=== PATIENT | female | born 1960 | race Hispanic/Latino ===

== ENCOUNTER 2018-01-08 06:42 | Emergency (ER) | payer SELFPAY ==
--- NOTE | 2018-01-08 07:58 | XRay Report ---
FINAL REPORT EXAM: XR CHEST ROUTINE 2V HISTORY: Shortness of breath TECHNIQUE: PA and lateral views of the chest were submitted. FINDINGS: The lungs are hyper inflated. There are surgical clips of the level of the right hilum. There is slight soft tissue fullness in the right hilum. Adenopathy cannot be excluded. There are no infiltrates or congestion in the lungs otherwise. Pleural fluid is not seen. The skeletal structures reveal hardware in the lower cervical spine from previous multilevel fusion surgery. There is disc degeneration in the dorsal spine. IMPRESSION: COPD. Postsurgical changes in the right hilum. Slight soft tissue fullness noted in the right hilum. Adenopathy cannot be excluded. No localized infiltrates or evidence of congestion.
[2018-01-08 08:08] LABS: INR 0.8 (0.87-1.13)
[2018-01-08 08:09] LABS: BUN/Creatinine Ratio 22; Blood Urea Nitrogen 13 mg/dL (7-17); Calcium 9.1 mg/dL (8.4-10.2); Hemolysis Index 15
[2018-01-08 08:17] LABS: Basophils # (Auto) 0.1 K/mm3 (0.0-0.1); Basophils % (Auto) 1.4 % (0.0-1.8); Eosinophils # (Auto) 0.1 K/mm3 (0.0-0.4); Eosinophils % (Auto) 1.7 % (0.0-4.3); Hematocrit 34.4 % (30.3-42.9); Hemoglobin 11.7 gm/dl (10.1-14.3); Lymphocytes # (Auto) 2.7 K/mm3 (1.2-5.4); Lymphocytes % (Auto) 32.3 % (13.4-35.0); Mean Corpuscular HGB Conc 34 % (30-34); Mean Corpuscular Hemoglobin 32 pg (28-32); Mean Corpuscular Volume 95 fl (79-97); Monocytes # (Auto) 0.6 K/mm3 (0.0-0.8); Monocytes % (Auto) 6.9 % (0.0-7.3); Red Blood Count 3.63 M/mm3 (3.65-5.03); Red Cell Distribution Width 14.2 % (13.2-15.2)
[2018-01-08 09:09] VITALS: BP 108/67
[2018-01-08 09:14] LABS: Platelet Count 225 K/mm3 (140-440)
--- NOTE | 2018-01-08 10:22 | Emergency Department Report ---
ED Shortness of Breath HPI - General Chief Complaint: Dyspnea/Respdistress Stated Complaint: FRANCESCO Time Seen by Provider: 01/08/18 10:18 Source: patient Mode of arrival: Ambulatory Limitations: No Limitations - History of Present Illness MD Complaint: shortness of breath - Related Data Allergies Allergy/AdvReac Type Severity Reaction Status Date / Time bee pollen Allergy Anaphylaxis Verified 01/08/18 07:19 erythromycin base Allergy Hives Verified 01/08/18 07:19 haloperidol [From Haldol] Allergy Anaphylaxis Verified 01/08/18 07:19 morphine Allergy Rash Verified 01/08/18 07:19 Penicillins Allergy Anaphylaxis Verified 01/08/18 07:19 sulfamethoxazole Allergy Hives Verified 01/08/18 07:19 [From Septra] trimethoprim [From Septra] Allergy Hives Verified 01/08/18 07:19 iv contrast Allergy Anaphylaxis Uncoded 01/08/18 07:19 ED Review of Systems ROS: Stated complaint: FRANCESCO Other details as noted in HPI ED Past Medical Hx - Past Medical History Previous Medical History?: Yes Hx Pulmonary Embolism: Yes Hx of Cancer: Yes (lung cancer) Hx Psychiatric Treatment: Yes (anxiety, bipolar) Hx COPD: Yes Additional medical history: PTSD - Surgical History Past Surgical History?: Yes Hx Cholecystectomy: Yes Hx Appendectomy: Yes Additional Surgical History: right upper lobe removed. bilateral ACL reconstruction. lamenectomy. neck fusion. hysterectomy. . bowel resection - Social History Smoking Status: Current Every Day Smoker Substance Use Type: None ED Physical Exam - General Limitations: No Limitations, Other (patient eloped before M.D. assessment.) ED Course Vital Signs 01/08/18 01/08/18 01/08/18 06:54 07:20 08:18 Temperature 97.9 F 97.9 F Pulse Rate 98 H 98 H 87 Respiratory 16 16 8 L Rate Blood Pressure 111/61 111/61 Blood Pressure [Left] O2 Sat by Pulse 99 99 99 Oximetry 01/08/18 01/08/18 01/08/18 08:30 08:36 08:46 Temperature 97.7 F Pulse Rate 89 87 91 H Respiratory 18 13 14 Rate Blood Pressure 107/71 108/67 Blood Pressure 100/66 [Left] O2 Sat by Pulse 98 99 98 Oximetry - Reevaluation(s) Reevaluation #1: 01/08/18 10:21 Patient eloped before M.D. assessment. ED Medical Decision Making - Lab Data Result diagrams: 01/08/18 07:32 01/08/18 07:32 - EKG Data -: EKG Interpreted by Me EKG shows normal: sinus rhythm - EKG Data Interpretation: no acute changes - Radiology Data Radiology results: report reviewed Referring Physician: VITO RUFFIN Patient Name: JOVANI SHERWOOD Date of : 1960 Sex: Female Report Date: 2018-01-08 Report Status: Finalized Findings [facility] [address] [place] [address] XRay Report Signed Patient: JOVANI SHERWOOD MR#: [id number] : 1960 Acct:[id number] Age/Sex: 57 / F ADM Date: 01/08/18 Loc: ED Attending Dr: Ordering Physician: VITO RUFFIN MD Date of Service: 01/08/18 Procedure(s): XR chest routine 2V Accession Number(s): [id number] cc: VITO RUFFIN MD Fluoro Time In Minutes: FINAL REPORT EXAM: XR CHEST ROUTINE 2V HISTORY: Shortness of breath TECHNIQUE: PA and lateral views of the chest were submitted. FINDINGS: The lungs are hyper inflated. There are surgical clips of the level of the right hilum. There is slight soft tissue fullness in the right hilum. Adenopathy cannot be excluded. There are no infiltrates or congestion in the lungs otherwise. Pleural fluid is not seen. The skeletal structures reveal hardware in the lower cervical spine from previous multilevel fusion surgery. There is disc degeneration in the dorsal spine. IMPRESSION: COPD. Postsurgical changes in the right hilum. Slight soft tissue fullness noted in the right hilum. Adenopathy cannot be excluded. No localized infiltrates or evidence of congestion. Transcribed By: RB Dictated By: KHUSHBOO ADAMS MD Electronically Authenticated By: KHUSHBOO ADAMS MD Signed Date/Time: 01/08/18750 DD/ 0 TD/TT: 01/08/18750 - Medical Decision Making Patient eloped before M.D. assessment. Critical care attestation.: If time is entered above; I have spent that time in minutes in the direct care of this critically ill patient, excluding procedure time. ED Disposition Clinical Impression: Shortness of breath Disposition: ELOPED Is pt being admited?: No Condition: Stable Referrals: PRIMARY CARE, [Primary Care Provider] - 3-5 Days
== END 2018-01-08 10:18 | disposition left against medical advice (07) ==
LOC: ED 06:42
DX: R06.02 Shortness of breath (principal); F17.200 Nicotine dependence, unspecified, uncomplicated; J44.9 Chronic obstructive pulmonary disease, unspecified; Z88.1 Allergy status to other antibiotic agents; Z88.5 Allergy status to narcotic agent; Z88.8 Allergy status to other drugs, medicaments and biological substances
CPT/HCPCS: 36415; 71046; 80048; 84484; 85025; 85610; 85730; 87040; 93005; 93010

== ENCOUNTER 2018-01-08 11:27 | Emergency (ER) | payer SELFPAY ==
[2018-01-08] MEDS ORDERED: GEODON IM ONE ×2 (11:28→11:51)
[2018-01-08] MEDS ORDERED: WATER FOR INJ (PF) ONE (11:28)
[2018-01-08] MEDS ORDERED: ACTIDOSE-AQUA PO ONE (11:33)
[2018-01-08 12:18] LABS: Bacteria,Urine 1+ /HPF (Negative); Bilirubin,Urine NEG (Negative); Blood,Urine NEG (Negative); Color,Urine Straw (Yellow); Mucus,Urine FEW /HPF; Protein,Urine <15 mg/dL mg/dL (Negative); Urobilinogen,Urine < 2.0 mg/dL (<2.0)
[2018-01-08 12:33] LABS: Amphetamine Screen,Urine PRESUMPTIVE NEGATIVE; Benzodiazepines Screen,Urine PRESUMPTIVE NEGATIVE; Cannabinoid Screen,Urine PRESUMPTIVE NEGATIVE; Cocaine Screen,Urine PRESUMPTIVE NEGATIVE; Methadone Screen,Urine PRESUMPTIVE NEGATIVE; Opiate Screen,Urine PRESUMPTIVE NEGATIVE
[2018-01-08 12:33] LABS: Hemoglobin 11.6 gm/dl (10.1-14.3); Mean Corpuscular HGB Conc 35 % (30-34); Mean Corpuscular Hemoglobin 33 pg (28-32); Mean Corpuscular Volume 94 fl (79-97); Platelet Count 235 K/mm3 (140-440); Red Blood Count 3.52 M/mm3 (3.65-5.03); Red Cell Distribution Width 14.3 % (13.2-15.2)
--- NOTE | 2018-01-08 12:47 | Emergency Department Report ---
ED Psych HPI - General Chief Complaint: Psych Stated Complaint: SUICIDAL IDEATION Source: patient Mode of arrival: Ambulatory - History of Present Illness Initial Comments: Patient is 57 years old female with history of COPD, bipolar. Patient was seen earlier today in the ER for cough and SOB but she did not wait for M.D. assessment. She came back stating that she took 30 tablets of ibuprofen 800 mg. Patient stated that she wanted to kill herself because she is very depressed. She denied any auditory or visual hallucination. No homicidal ideation. Poison control was contacted and advised to observe for 4 hours. MD Complaint: suicidal ideation Associated Psychiatric Symptoms: depression - Related Data Allergies Allergy/AdvReac Type Severity Reaction Status Date / Time bee pollen Allergy Anaphylaxis Verified 01/08/18 11:44 erythromycin base Allergy Hives Verified 01/08/18 11:44 haloperidol [From Haldol] Allergy Anaphylaxis Verified 01/08/18 11:44 morphine Allergy Rash Verified 01/08/18 11:44 Penicillins Allergy Anaphylaxis Verified 01/08/18 11:44 sulfamethoxazole Allergy Hives Verified 01/08/18 11:44 [From Septra] trimethoprim [From Septra] Allergy Hives Verified 01/08/18 11:44 iv contrast Allergy Anaphylaxis Uncoded 01/08/18 07:19 ED Review of Systems ROS: Stated complaint: SUICIDAL IDEATION Other details as noted in HPI Comment: All other systems reviewed and negative Constitutional: denies: chills, fever Respiratory: cough. denies: orthopnea, shortness of breath, SOB with exertion, SOB at rest, wheezing Cardiovascular: denies: chest pain, palpitations, dyspnea on exertion Gastrointestinal: denies: abdominal pain, nausea, vomiting, diarrhea, constipation, hematemesis, melena, hematochezia Neurological: denies: headache, weakness, numbness, paresthesias, confusion, abnormal gait ED Past Medical Hx - Past Medical History Hx Pulmonary Embolism: Yes Hx Psychiatric Treatment: Yes (anxiety, bipolar) Hx COPD: Yes Additional medical history: PTSD - Surgical History Hx Cholecystectomy: Yes Hx Appendectomy: Yes Additional Surgical History: right upper lobe removed. bilateral ACL reconstruction. lamenectomy. neck fusion. hysterectomy. . bowel resection - Social History Smoking Status: Current Every Day Smoker Substance Use Type: None ED Physical Exam - General Limitations: No Limitations General appearance: alert, in no apparent distress, anxious - Head Head exam: Present: atraumatic, normocephalic, normal inspection - Eye Eye exam: Present: normal appearance - ENT ENT exam: Present: normal exam, normal orophraynx, mucous membranes moist - Neck Neck exam: Present: normal inspection, full ROM. Absent: tenderness, meningismus - Respiratory Respiratory exam: Present: normal lung sounds bilaterally. Absent: respiratory distress, wheezes, rales, rhonchi, stridor, accessory muscle use, decreased breath sounds, prolonged expiratory - Cardiovascular Cardiovascular Exam: Present: regular rate, normal rhythm, normal heart sounds - GI/Abdominal GI/Abdominal exam: Present: soft, normal bowel sounds. Absent: distended, tenderness, guarding, rebound, rigid, organomegaly, mass, bruit, pulsatile mass , hernia - Extremities Exam Extremities exam: Present: normal inspection, full ROM, normal capillary refill - Back Exam Back exam: Present: normal inspection, full ROM. Absent: CVA tenderness (L) - Neurological Exam Neurological exam: Present: alert, oriented X3, CN II-XII intact, normal gait, reflexes normal - Skin Skin exam: Present: warm, intact, normal color ED Course Vital Signs 01/08/18 01/08/18 11:44 17:43 Temperature 97.6 F 97.9 F Pulse Rate 98 H 82 Respiratory 20 20 Rate Blood Pressure 138/84 Blood Pressure 112/64 [Left] O2 Sat by Pulse 94 95 Oximetry - Reevaluation(s) Reevaluation #1: 01/08/18 18:52 Patient has been observed in the ER for more than 8 hours now, no nausea or vomiting. Patient is medically clear to be admitted to a psychiatric facility. ED Medical Decision Making - Lab Data Result diagrams: 01/08/18 12:21 01/08/18 12:21 - Radiology Data Radiology results: report reviewed Chest x-rays unremarkable. Critical care attestation.: If time is entered above; I have spent that time in minutes in the direct care of this critically ill patient, excluding procedure time. ED Disposition Clinical Impression: Suicide attempt, Drug overdose, intentional, Acute bronchitis Disposition: [id number]/TX-65 PSY HOSP/PSY UNIT Is pt being admited?: No Condition: Stable Instructions: Acute Bronchitis (ED) Referrals: PRIMARY CARE,MD [Primary Care Provider] - 3-5 Days
[2018-01-08 12:51] LABS: Alanine Aminotransferase 87 units/L (7-56); Albumin 4.2 g/dL (3.9-5); BUN/Creatinine Ratio 18; Blood Urea Nitrogen 11 mg/dL (7-17); Calcium 9.1 mg/dL (8.4-10.2); Hemolysis Index 23
[2018-01-08 12:55] LABS: Bilirubin,Direct < 0.2 mg/dL (0-0.2)
[2018-01-09] MEDS ORDERED: ATIVAN PO SCH (10:00)
[2018-01-09] MEDS: ATIVAN PO PRN ×2 (10:09→20:05)
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
[2018-01-09 14:20] LABS: Alanine Aminotransferase 61 units/L (7-56)
[2018-01-09] MEDS: PAXIL PO SCH (14:43)
[2018-01-09] MEDS ORDERED: ZOFRAN ODT PO ONE (14:49)
[2018-01-09] MEDS: LEVAQUIN PO SCH (15:06)
[2018-01-09] MEDS ORDERED: K-DUR PO ONE (17:13)
[2018-01-09] MEDS ORDERED: TYLENOL ONE (17:15)
[2018-01-09] MEDS: THORAZINE PO SCH (22:20)
[2018-01-10] MEDS: ATIVAN PO PRN ×2 (07:15→21:29)
[2018-01-10] MEDS: LEVAQUIN PO SCH (10:30)
[2018-01-10] MEDS: THORAZINE PO SCH ×2 (12:15→22:00)
[2018-01-10] MEDS: PAXIL PO SCH (12:15)
--- NOTE | 2018-01-10 13:23 | Progress Note ---
Subjective - Reason for Consult Consult date: 01/10/18 Reason for consult: Psychiatry Follow-up - Chief Complaint Chief complaint: "I am okay" 57 y.o. white female presenting to the ER for depression and possible suicide attempt ny taking multiple ibuprofen. Today the patient is calm, but dysphoric during the assessment. She did state that it was a unsafe act taking multiple ibuprofen pills. She still will not confirm or deny a previous suicide attempt when asked. She denies SI/Hi's and AVH's. She denies any side effects of her medications. Mental Status Exam - Vital signs Last Vital Signs Temp 97.5 F L 01/09/18 22:00 Pulse 92 H 01/09/18 22:00 Resp 18 01/09/18 22:00 BP 105/75 01/09/18 22:00 Pulse Ox 98 01/09/18 22:00 - Exam Narrative exam: MSE: Appearance: calm, cooperative Behavior: regular eye contact Speech: regular rate and tone Mood: dysphoric Affect: congruent to mood Thought Process: circumstantial Thought Content: denies SI/HI's and AVH's Motor Activity: ambulatory Cognition: A/O x 3 Insight: variable Judgment: variable Assessment and Plan Impression: Unspecified Mood DO. PTSD. Unspecified Anxiety DO. Today the patient is calm, but dysphoric during the assessment. The patient took several Ibuprofen pills. QTc 462 01/09/2018. DDx: Bipolar DO, MDD Recommendation/Plan: Continue 1013 and gather collateral information to help determine proper dispo. Continue Paxil 20 mg PO, Thorazine 25 mg PO BID, and Ativan 0.5 mg PO Q6hrs PRN. Discussed possible suicidality/medication induced bernardo with patient reference Paxil. Discussed possible EPS symptoms with patient reference Thorazine.
[2018-01-10] MEDS ORDERED: BENADRYL PO ONE (15:24)
[2018-01-10] MEDS ORDERED: VALIUM PO ONE (16:00)
[2018-01-10] MEDS ORDERED: TYLENOL PO ONE (23:41)
[2018-01-10] MEDS ORDERED: TYLENOL ONE (23:46)
[2018-01-11] MEDS: ATIVAN PO PRN ×4 (06:21→21:14)
[2018-01-11 09:18] VITALS: BP 117/76
[2018-01-11] MEDS: THORAZINE PO SCH (09:30)
[2018-01-11] MEDS: LEVAQUIN PO SCH (09:30)
[2018-01-11] MEDS: PAXIL PO SCH (09:30)
--- NOTE | 2018-01-11 10:28 | Progress Note ---
Subjective - Reason for Consult Consult date: 01/11/18 Reason for consult: Psychiatry Follow-up - Chief Complaint Chief complaint: "When can I move" 57 y.o. white female presenting to the ER for depression and possible suicide attempt ny taking multiple ibuprofen. Today the patient is calm and cooperative during the assessment. She stated that she plan to follow up with her psychiatrist once discharged. She is adamant that she didn't intentionally try to harm herself when she took multiple Ibuprofen pills. She denies SI/Hi's and AVH's. She denies any side effects of her medications. Mental Status Exam - Vital signs Last Vital Signs Temp 99 F 01/11/18 09:17 Pulse 93 H 01/11/18 09:17 Resp 20 01/11/18 09:17 BP 117/76 01/11/18 09:17 Pulse Ox 98 01/11/18 09:17 - Exam Narrative exam: MSE: Appearance: calm, cooperative Behavior: regular eye contact Speech: regular rate and tone Mood: "better" Affect: congruent to mood Thought Process: circumstantial Thought Content: denies SI/HI's and AVH's Motor Activity: ambulatory Cognition: A/O x 3 Insight: fair Judgment: fair Assessment and Plan Impression: Unspecified Mood DO. PTSD. Unspecified Anxiety DO. Today the patient is calm and cooperative during the assessment. The patient took several Ibuprofen pills. QTc 462 01/09/2018. DDx: Bipolar DO, MDD Recommendation/Plan: Reevaluate 1013 in 24 hours. A suicide risk assessment should be completed on the patient if her 1013 is rescinded. Continue Paxil 20 mg PO, Thorazine 25 mg PO BID, and Ativan 0.5 mg PO Q6hrs PRN. Discussed possible suicidality/medication induced bernardo with patient reference Paxil. Discussed possible EPS symptoms with patient reference Thorazine.
[2018-01-11] MEDS ORDERED: VALIUM PO NR (11:23)
[2018-01-11] MEDS ORDERED: TYLENOL #3 ONE (11:27)
[2018-01-11] MEDS ORDERED: VALIUM ONE (11:29)
[2018-01-11] MEDS ORDERED: WATER FOR INJ (PF) ONE (16:13)
[2018-01-11] MEDS ORDERED: GEODON IM ONE ×2 (16:13→16:16)
--- NOTE | 2018-01-11 17:13 | XRay Report ---
FINAL REPORT EXAM: XR SPINE LUMBOSACRAL 2-3V HISTORY: sacral pain TECHNIQUE: Frontal and lateral views lumbar spine and coned-down lateral views lumbosacral junction Comparison: None FINDINGS: Bony alignment is normal. The vertebral heights are maintained. There appears to be loss of height of the L4-L5 disc. There is multiple level degenerative facet change in the lower lumbar spine. The paraspinous soft tissues are notable for atherosclerotic vascular calcification. Surgical clips in the right upper quadrant most likely represent previous cholecystectomy. IMPRESSION: 1. Spondylitic change lumbar spine. If further imaging is required, MRI may be helpful. 2. Atherosclerotic vascular calcification. 3. Previous cholecystectomy.
== END 2018-01-11 22:07 ==
LOC: ED 11:27 → EEVIPCON 11:27 → ED 01-11 22:07
DX: T39.312A Poisoning by propionic acid derivatives, intentional self-harm, initial encounter (principal); J20.9 Acute bronchitis, unspecified; F41.9 Anxiety disorder, unspecified; F31.9 Bipolar disorder, unspecified; J44.9 Chronic obstructive pulmonary disease, unspecified; F17.200 Nicotine dependence, unspecified, uncomplicated; F43.10 Post-traumatic stress disorder, unspecified; Z90.49 Acquired absence of other specified parts of digestive tract; Z90.89 Acquired absence of other organs; Z88.1 Allergy status to other antibiotic agents; Z88.5 Allergy status to narcotic agent; Z91.030 Bee allergy status; Z88.0 Allergy status to penicillin; Z88.2 Allergy status to sulfonamides; Z91.041 Radiographic dye allergy status; Z79.899 Other long term (current) drug therapy; Y92.89 Other specified places as the place of occurrence of the external cause
CPT/HCPCS: 36415; 72100; 80048; 80074; 80307; 81001; 82550; 83735; 84075; 84132; 84450; 84460; 85027; 96372; 99285; G0480; J3486; 80320; Q0161; Q0162

== ENCOUNTER 2018-10-19 06:59 | Emergency (ER) | payer OTHER ==
[2018-10-19] MEDS ORDERED: ASPIRIN PO ONE (07:06)
[2018-10-19 07:45] LABS: Hematocrit 36.2 % (30.3-42.9); Hemoglobin 12.4 gm/dl (10.1-14.3); Mean Corpuscular HGB Conc 34 % (30-34); Mean Corpuscular Volume 95 fl (79-97); Platelet Count 181 K/mm3 (140-440); Red Blood Count 3.83 M/mm3 (3.65-5.03); Red Cell Distribution Width 14.1 % (13.2-15.2)
--- NOTE | 2018-10-19 07:58 | XRay Report ---
ROUTINE CHEST, TWO VIEWS: HISTORY: chest pain. Compared to 01/08/18 exam. The lungs are hyperinflated consistent with underlying emphysematous changes. Surgical changes and scarring are suspected in the right perihilar region which is unchanged. The lungs are clear otherwise. No pleural effusion or pneumothorax. Normal heart size and pulmonary vessels. The bony structures are grossly intact. Lower cervical fusion changes are again noted. IMPRESSION: Emphysematous changes. Postsurgical changes at the right hilum which probably represents partial right pneumonectomy. No acute change since 01/08/18.
[2018-10-19 08:07] LABS: BUN/Creatinine Ratio 18; Blood Urea Nitrogen 11 mg/dL (7-17); Calcium 9.4 mg/dL (8.4-10.2); Hemolysis Index 13
[2018-10-19 08:25] LABS: INR 0.8 (0.87-1.13); Partial Thromboplastin Time 20.9 Sec. (24.2-36.6)
[2018-10-19 08:33] LABS: Band Neutrophils # (Manual) 0.1 K/mm3; Basophils % (Manual) 0 % (0.0-1.8); Eosinophils % (Manual) 0 % (0.0-4.3); Monocytes % (Manual) 0 % (0.0-7.3); Platelet Clumps 1+; Platelet Estimate Consistent w Auto; Stomatocytes 1+; Total Cells Counted 100
--- NOTE | 2018-10-19 09:38 | Emergency Department Report ---
HPI - General Chief Complaint: Chest Pain Time Seen by Provider: 10/19/18 09:08 - [facility] HPI: Room 22 The patient is a 58-year-old female presenting with chief complaint of chest pain. The patient states she's had intermittent sharp chest pain since 01:00. Patient states her pain is associated with shortness of breath, diaphoresis, nausea and vomiting. Patient admits to pleurisy. Patient currently gets her pain a score of 4-5/10. Patient states her chest pain increases with exertion. Patient states she has a history of PEs and was last diagnosed with 2 PEs in June 2018. Patient states she missed her Lovenox dose yesterday. Patient states she's never had a stress test or cardiac catheterization Location: Chest Duration: Intermittent since 01:00 Quality: Sharp Severity: 4-5/10 Modifying factors: [see above] Context: [see above] Mode of transportation: [not driving] ED Past Medical Hx - Past Medical History Previous Medical History?: Yes Hx Pulmonary Embolism: Yes Hx Psychiatric Treatment: Yes (anxiety, bipolar) Hx COPD: Yes Additional medical history: PTSD - Surgical History Past Surgical History?: Yes Hx Cholecystectomy: Yes Hx Appendectomy: Yes Additional Surgical History: right upper lobe removed. bilateral ACL reconstruction. lamenectomy. neck fusion. hysterectomy. . bowel resection - Family History Family history: no significant - Social History Smoking Status: Current Some Day Smoker Substance Use Type: None (denies illicit drug use) - Medications Home Medications: Home Medications Medication Instructions Recorded Confirmed Last Taken Type Unobtainable 01/08/18 01/08/18 Unknown History ED Review of Systems ROS: Stated complaint: CHEST PAIN Other details as noted in HPI Constitutional: diaphoresis Eyes: denies: eye pain ENT: denies: throat pain Respiratory: shortness of breath Cardiovascular: chest pain Endocrine: no symptoms reported Gastrointestinal: nausea, vomiting Genitourinary: denies: dysuria Musculoskeletal: denies: back pain Neurological: denies: headache Physical Exam - Physical Exam Vital Signs: Vital Signs 10/19/18 10/19/18 10/19/18 07:00 08:32 08:45 Temperature 98.1 F Pulse Rate 108 H 85 Respiratory 18 22 Rate Blood Pressure 124/79 103/51 O2 Sat by Pulse 97 98 98 Oximetry Physical Exam: GENERAL: The patient is well-developed well-nourished female lying on stretcher not appearing to be in acute distress. [] HEENT: Normocephalic. Atraumatic. Extraocular motions are intact. Patient has moist mucous membranes. NECK: Supple. Trachea midline CHEST/LUNGS: Clear to auscultation. There is no respiratory distress noted. HEART/CARDIOVASCULAR: Regular. There is no tachycardia. There is no gallop rub or murmur. ABDOMEN: Abdomen is soft, nontender. Patient has normal bowel sounds. There is no abdominal distention. SKIN: There is no rash. There is no edema. There is no diaphoresis. NEURO: The patient is awake, alert, and oriented. The patient is cooperative. The patient has normal speech MUSCULOSKELETAL: There is no evidence of acute injury. ED Course Vital Signs 10/19/18 10/19/18 10/19/18 07:00 08:32 08:45 Temperature 98.1 F Pulse Rate 108 H 85 Respiratory 18 22 Rate Blood Pressure 124/79 103/51 O2 Sat by Pulse 97 98 98 Oximetry ED Medical Decision Making - Lab Data Result diagrams: 10/19/18 07:11 10/19/18 07:11 Laboratory Tests 10/19/18 10/19/18 10/19/18 07:11 07:11 07:35 WBC 12.8 H RBC 3.83 Hgb 12.4 Hct 36.2 MCV 95 MCH 32 MCHC 34 RDW 14.1 Plt Count 181 Add Manual Diff Complete Total Counted 100 Seg Neuts % (Manual) 86.0 H Band Neutrophils % 1.0 Lymphocytes % (Manual) 13.0 L Reactive Lymphs % (Man) 0 Monocytes % (Manual) 0 Eosinophils % (Manual) 0 Basophils % (Manual) 0 Metamyelocytes % 0 Myelocytes % 0 Promyelocytes % 0 Blast Cells % 0 Nucleated RBC % Not Reportable Seg Neutrophils # Man 11.0 H Band Neutrophils # 0.1 Lymphocytes # (Manual) 1.7 Abs React Lymphs (Man) 0.0 Monocytes # (Manual) 0.0 Eosinophils # (Manual) 0.0 Basophils # (Manual) 0.0 Metamyelocytes # 0.0 Myelocytes # 0.0 Promyelocytes # 0.0 Blast Cells # 0.0 WBC Morphology Not Reportable Hypersegmented Neuts Not Reportable Hyposegmented Neuts Not Reportable Hypogranular Neuts Not Reportable Smudge Cells Not Reportable Toxic Granulation Not Reportable Toxic Vacuolation Not Reportable Dohle Bodies Not Reportable Pelger-Huet Anomaly Not Reportable López Rods Not Reportable Platelet Estimate Consistent w auto Clumped Platelets 1+ Plt Clumps, EDTA Not Reportable Large Platelets Not Reportable Giant Platelets Not Reportable Platelet Satelliting Not Reportable Plt Morphology Comment Not Reportable RBC Morphology Not Reportable Dimorphic RBCs Not Reportable Polychromasia Not Reportable Hypochromasia Not Reportable Poikilocytosis Not Reportable Anisocytosis Not Reportable Microcytosis Not Reportable Macrocytosis Not Reportable Spherocytes Not Reportable Pappenheimer Bodies Not Reportable Sickle Cells Not Reportable Target Cells Not Reportable Tear Drop Cells Not Reportable Ovalocytes Not Reportable Stomatocytes 1+ Helmet Cells Not Reportable Wong-[place] Bodies Not Reportable [place] Rings Not Reportable [place] Cells Not Reportable Bite Cells Not Reportable Crenated Cell Not Reportable Elliptocytes Not Reportable Acanthocytes (Spur) Not Reportable Rouleaux Not Reportable Hemoglobin C Crystals Not Reportable Schistocytes Not Reportable Malaria parasites Not Reportable Ziyad Bodies Not Reportable Hem Pathologist Commnt No PT 11.5 L INR 0.80 L APTT 20.9 L Sodium 141 Potassium 4.3 Chloride 100.9 Carbon Dioxide 24 Anion Gap 20 BUN 11 Creatinine 0.6 L Estimated GFR > 60 BUN/Creatinine Ratio 18 Glucose 94 Calcium 9.4 Troponin T < 0.010 - EKG Data -: EKG Interpreted by Me EKG shows normal: sinus rhythm Rate: tachycardia (102 bpm) - EKG Data When compared to previous EKG there are: previous EKG unavailable Interpretation: other (no ischemic changes seen) - Radiology Data Radiology results: pending (VQ scan), report reviewed (chest x-ray), image reviewed (chest x-ray) interpreted by me: Chest x-ray-no focal infiltrates, no pneumothorax [facility] [address] [place] [address] XRay Report Signed Patient: JOVANI SHERWOOD MR#: [id number] : 1960 Acct:[id number] Age/Sex: 58 / F ADM Date: 10/19/18 Loc: ED Attending Dr: Order ing Physician: ED DOC, MD Date of Service: 10/19/18 Procedure(s): XR chest routine 2V Accession Number(s): [id number] cc: ED DOC, Fluoro Time In Minutes: ROUTINE CHEST, TWO VIEWS: HISTORY: chest pain. Compared to 01/08/18 exam. The lungs are hyperinflated consistent with underlying emphysematous changes. Surgical changes and scarring are suspected in the right perihilar region which is unchanged. The lungs are clear otherwise. No pleural effusion or pneumothorax. Normal heart size and pulmonary vessels. The bony structures are grossly intact. Lower cervical fusion changes are again noted. IMPRESSION: Emphysematous changes. Postsurgical changes at the right hilum which probably represents partial right pneumonectomy. No acute change since 01/08/18. Transcribed By: TTR Dictated By: VALERIE VARGAS JR, MD Electronically Authenticated By: VALERIE VARGAS JR, MD Signed Date/Time: 10/19/18752 DD/ 1 TD/TT: 10/19/18752 - Differential Diagnosis ACS, PE, GERD, pericarditis Critical care attestation.: If time is entered above; I have spent that time in minutes in the direct care of this critically ill patient, excluding procedure time. ED Disposition Clinical Impression: Chest pain Disposition: 09 OP ADMIT IP TO THIS HOSP Is pt being admited?: Yes Does the pt Need Aspirin: Yes Condition: Fair Instructions: Chest Pain (ED) Referrals: PRIMARY CARE, [Primary Care Provider] - 3-5 Days Time of Disposition: 12:02 (hospitalist notified (Dr Freed))
[2018-10-19] MEDS ORDERED: SUBLIMAZE IV ONE (10:02)
[2018-10-19] MEDS ORDERED: ZOFRAN IV ONE (10:02)
--- NOTE | 2018-10-19 12:16 | Event Note ---
Date: 10/19/18 58 YO Female presents to ED for evaluation of chest pain. Pt treated IAW chest pain protocol. Serial cardiac enzymes, EKG, and telemetry monitoring were unremarkable. Pt left AMA prior to completion of workup. Pt informed of risk of worsening disease and if symptoms worsen. Pt acknowledges understanding instruction. Pt instructed to F/U PCP, or Cardiology at discharge. Pt reports that she will seek further care at [facility]. Physical Exam: GENERAL: The patient is well-developed well-nourished female lying on stretcher not appearing to be in acute distress. [] HEENT: Normocephalic. Atraumatic. Extraocular motions are intact. Patient has moist mucous membranes. NECK: Supple. Trachea midline CHEST/LUNGS: Clear to auscultation. There is no respiratory distress noted. HEART/CARDIOVASCULAR: Regular. There is no tachycardia. There is no gallop rub or murmur. ABDOMEN: Abdomen is soft, nontender. Patient has normal bowel sounds. There is no abdominal distention. SKIN: There is no rash. There is no edema. There is no diaphoresis. NEURO: The patient is awake, alert, and oriented. The patient is cooperative. The patient has normal speech MUSCULOSKELETAL: There is no evidence of acute injury.
[2018-10-19 13:18] VITALS: BP 114/70
== END 2018-10-19 12:30 | disposition admitted as inpatient to this hospital (09) ==
LOC: ED 06:59
DX: R07.89 Other chest pain (principal); F41.9 Anxiety disorder, unspecified; F31.9 Bipolar disorder, unspecified; F43.10 Post-traumatic stress disorder, unspecified; F17.200 Nicotine dependence, unspecified, uncomplicated; Z86.711 Personal history of pulmonary embolism; Z90.49 Acquired absence of other specified parts of digestive tract; Z90.89 Acquired absence of other organs; Z90.710 Acquired absence of both cervix and uterus; Z91.030 Bee allergy status; Z91.041 Radiographic dye allergy status; Z88.8 Allergy status to other drugs, medicaments and biological substances; Z88.6 Allergy status to analgesic agent
CPT/HCPCS: 36415; 71046; 80048; 84484; 85007; 85025; 85610; 85730; 93005; 93010; 96374; 96375; 99284; J2405; J3010

== ENCOUNTER 2018-10-19 16:04 | Emergency (ER) | payer OTHER ==
[2018-10-19 16:10] VITALS: BP 111/74
--- NOTE | 2018-10-19 16:11 | Emergency Department Report ---
Blank Doc - Documentation Documentation: This is a 58-year-old female that presents with SOB. PAtient was seen this mo rning by Dr. Briscoe and admitted but patient left against medical advice. Labs has been done less then 24 hours. Will repeat EKG. This initial assessment/diagnostic orders/clinical plan/treatment(s) is/are subject to change based on patient's health status, clinical progression and re- assessment by fellow clinical providers in the ED. Further treatment and workup at subsequent clinical providers discretion. Patient/guardians urged not to elope from the ED as their condition may be serious if not clinically assessed and managed. Initial orders include: 1- Patient sent to MAIN ED for further evaluation and treatment
[2018-10-19] MEDS ORDERED: LOVENOX SUB-Q STA (19:02)
--- NOTE | 2018-10-19 19:43 | Emergency Department Report ---
ED General Adult HPI - General Chief complaint: Medical Clearance Stated complaint: MENTAL HEALTH Time Seen by Provider: 10/19/18 16:11 Source: patient Mode of arrival: Ambulatory Limitations: No Limitations - History of Present Illness Initial comments: 58-year-old female with a past medical history of anxiety and bipolar disorder, PTSD (recently released from [facility]), COPD, pulmonary embolism, which is currently being treated with Lovenox. She received a prescription to have Lovenox per the pharmacy but was unable to make it there due to arriving to the [facility] late could make it over to the [place] in time. She presents to the emergency department seeking a Lovenox injection to hold until she can get there in the morning. She reports no chest pain or shortness of breath at this time. She was ever seeing earlier today at which she was having some exertional chest discomfort and pain that has since resolved. Steven hernandez states she would [facility]. Comes in a Lovenox shot only. She denies any hemoptysis, hematemesis, and hematochezia. No nausea, no vomiting, fever, chills, sweats, no coughing, no sputum production. Improves with: none Worsens with: none Associated Symptoms: denies: loss of appetite, malaise, nausea/vomiting, shortness of breath, syncope Treatments Prior to Arrival: other (was seen and evaluated by Dr. Briscoe earlier today) - Related Data Home Medications Medication Instructions Recorded Confirmed Last Taken Unobtainable 01/08/18 01/08/18 Unknown Allergies Allergy/AdvReac Type Severity Reaction Status Date / Time bee pollen Allergy Anaphylaxis Verified 01/08/18 11:44 erythromycin base Allergy Hives Verified 01/08/18 11:44 haloperidol [From Haldol] Allergy Anaphylaxis Verified 01/08/18 11:44 morphine Allergy Rash Verified 01/08/18 11:44 Penicillins Allergy Anaphylaxis Verified 01/08/18 11:44 sulfamethoxazole Allergy Hives Verified 01/08/18 11:44 [From Septra] trimethoprim [From Septra] Allergy Hives Verified 01/08/18 11:44 iv contrast Allergy Anaphylaxis Uncoded 01/08/18 07:19 ED Review of Systems ROS: Stated complaint: MENTAL HEALTH Other details as noted in HPI Constitutional: denies: chills, fever Eyes: denies: eye pain, eye discharge, vision change ENT: denies: ear pain, throat pain Respiratory: denies: cough, shortness of breath, wheezing Cardiovascular: chest pain (had chest pain earlier today non at present). denies: palpitations Endocrine: no symptoms reported Gastrointestinal: denies: abdominal pain, nausea, diarrhea Genitourinary: denies: urgency, dysuria, discharge Musculoskeletal: denies: back pain, joint swelling, arthralgia Skin: denies: rash, lesions Neurological: denies: headache, weakness, paresthesias Psychiatric: denies: anxiety, depression Hematological/Lymphatic: denies: easy bleeding, easy bruising ED Past Medical Hx - Past Medical History Previous Medical History?: Yes Hx Pulmonary Embolism: Yes Hx Psychiatric Treatment: Yes (anxiety, bipolar) Hx COPD: Yes Additional medical history: PTSD - Surgical History Past Surgical History?: Yes Hx Cholecystectomy: Yes Hx Appendectomy: Yes Additional Surgical History: right upper lobe removed. bilateral ACL reconstruction. lamenectomy. neck fusion. hysterectomy. . bowel resection - Social History Smoking Status: Current Every Day Smoker - Medications Home Medications: Home Medications Medication Instructions Recorded Confirmed Last Taken Type Unobtainable 01/08/18 01/08/18 Unknown History ED Physical Exam - General Limitations: No Limitations General appearance: alert, in no apparent distress - Head Head exam: Present: atraumatic, normocephalic - Eye Eye exam: Present: normal appearance, PERRL, EOMI - ENT ENT exam: Present: mucous membranes moist - Neck Neck exam: Present: normal inspection - Respiratory Respiratory exam: Present: normal lung sounds bilaterally. Absent: respiratory distress - Cardiovascular Cardiovascular Exam: Present: regular rate, normal rhythm. Absent: systolic murmur, diastolic murmur, rubs, gallop - GI/Abdominal GI/Abdominal exam: Present: soft, normal bowel sounds - Extremities Exam Extremities exam: Present: normal inspection - Back Exam Back exam: Present: normal inspection - Neurological Exam Neurological exam: Present: alert, oriented X3, CN II-XII intact, normal gait - Psychiatric Psychiatric exam: Present: normal affect, normal mood. Absent: depressed, agitated, homicidal ideation, suicidal ideation - Skin Skin exam: Present: warm, dry, intact, normal color. Absent: rash ED Course Vital Signs 10/19/18 16:09 Temperature 98.8 F Pulse Rate 89 Respiratory 16 Rate Blood Pressure 111/74 O2 Sat by Pulse 96 Oximetry ED Medical Decision Making - Medical Decision Making This 58-year-old female non-homicidal nonsuicidal, who appears [employer] sounders at current presents the emergency department seeking only to receive a Lovenox shot and a bus pass to go to [place]. States she does not have any pain, does not wish to be admitted as previously recommended by Dr. Briscoe. Currently she is asymptomatic. She has been ambulatory around the [facility] since leaving the hospital. No worsening symptoms have emerge. Symptoms have change foreign improvement. She is aware of the risk of not taking her medications as prescribed and she is aware of her pulmonary embolisms in the necessary management. She has her prescriptions in hand. As I have have reviewed them and she can take them to the [facility] for them to be filled. This case. This case was discussed with Dr. Jonathan Haque, who was aware of the current findings and aware of her previous visit. The patient is stable, we'll discharge Critical care attestation.: If time is entered above; I have spent that time in minutes in the direct care of this critically ill patient, excluding procedure time. ED Disposition Clinical Impression: Visit for monitoring Lovenox therapy Disposition: DC-01 TO HOME OR SELFCARE Is pt being admited?: No Does the pt Need Aspirin: No Condition: Stable Referrals: LAMINE FOY MD [Primary Care Provider] - 3-5 Days
== END 2018-10-19 20:04 | disposition home or self-care (01) ==
LOC: ED 16:04 → EEVIPCON 16:04 → ED 20:04
DX: R07.89 Other chest pain (principal); Z02.83 Encounter for blood-alcohol and blood-drug test; F31.9 Bipolar disorder, unspecified; F43.10 Post-traumatic stress disorder, unspecified; F17.200 Nicotine dependence, unspecified, uncomplicated; Z90.49 Acquired absence of other specified parts of digestive tract; Z86.711 Personal history of pulmonary embolism; Z90.710 Acquired absence of both cervix and uterus; Z88.0 Allergy status to penicillin; Z88.2 Allergy status to sulfonamides; Z91.041 Radiographic dye allergy status; Z88.1 Allergy status to other antibiotic agents; Z88.6 Allergy status to analgesic agent
CPT/HCPCS: 96372; 99282; J1650